=== PATIENT | female | born 1985 | race Two or more races ===

== ENCOUNTER → 2024-06-25 | Outpatient (CLI) | payer OTHER, MEDICAID, SELFPAY ==
[2024-06-26 14:49] LABS: BVAG Candida Negative (Negative); Bacterial Vaginosis Markers Positive (Negative); Candida glabrata Negative (Negative); Candida krusei PCR Negative (Negative); Trichomonas Negative (Negative)
== END | disposition home or self-care (01) ==
LOC: SLDO 13:04
PROVIDERS: Referring Provider Physician Assistant Medical; Visit Provider Physician Assistant Medical
DX: N76.0 Acute vaginitis (principal); A59.01 Trichomonal vulvovaginitis; B37.31 Acute candidiasis of vulva and vagina
CPT/HCPCS: 81514

== ENCOUNTER 2024-07-14 11:16 | Outpatient (RCR) | payer OTHER, MEDICAID, SELFPAY ==
[2024-06-23 15:14] LABS: Basophils % (Auto) 1 % (0-2.5); Eosinophils % (Auto) 1 % (0-10); Hematocrit 42.1 % (36.0-46.0); Hemoglobin 15.3 g/dL (12.0-16.0); Immature Granulocytes % (Auto) 0 % (0-0); Lymphocytes # (Auto) 1.2 Thou/mm3 (1.0-4.8); Lymphocytes % (Auto) 34 % (10-50); Mean Corpuscular HGB Conc 36.3 g/dl (31.0-37.0); Mean Corpuscular Hemoglobin 33.6 pg (25.0-35.0); Mean Corpuscular Volume 92 fL (80-100); Monocytes # (Auto) 0.2 Thou/mm3 (0.0-0.8); Monocytes % (Auto) 6 % (0-12); Neutrophils % (Auto) 58 % (37-80); Nucleated Red Blood Cell % 0 /100 WBC (0); Platelet Count 185 Thou/mm3 (140-440); RDW Standard Deviation 40.1 fL (36.4-46.3); Red Blood Count 4.56 Miln/mm3 (4.00-5.20); White Blood Count 3.4 Thou/mm3 (3.6-11.0)
[2024-06-23 15:38] LABS: Alanine Aminotransferase 26 U/L (10-49); Albumin, Serum 4.8 gm/dL (3.5-5.0); Albumin/Globulin Ratio 1.6 (1.2-2.2); Alkaline Phosphatase 137 U/L (46-116); Anion Gap 8 (7-16); Aspartate Amino Transferase 26 U/L (0-34); BUN/Creatinine Ratio 20 Ratio (12-20); Bilirubin,Total 0.8 mg/dL (0.3-1.2); Blood Urea Nitrogen 12 mg/dL (9-23); Calcium 9.9 mg/dL (8.3-10.6); Calcium (Corrected) 9.9 mg/dL (8.5-10.1); Chloride 104 mMol/L (98-107); Creatinine (Component) 0.6 mg/dL (0.6-1.3); Glucose 69 mg/dL (74-106); Osmolality,Calculated 271 (275-295); Potassium 3.3 mMol/L (3.4-5.1); Sodium 137 mMol/L (136-145); Thyroid Stimulating Hormone 1.47 uIU/mL (0.55-4.78); Total Protein 7.8 gm/dL (5.7-8.2); eGFR > 60 See Note
[2024-06-29 06:52] LABS: T3,Total* 98 ng/dL (76-181)
[2024-06-30 09:36] LABS: Basophils % (Auto) 1 % (0-2.5); Eosinophils # (Auto) 0.1 Thou/mm3 (0.0-0.5); Eosinophils % (Auto) 2 % (0-10); Hematocrit 39.7 % (36.0-46.0); Hemoglobin 14.6 g/dL (12.0-16.0); Immature Granulocytes % (Auto) 0 % (0-0); Lymphocytes % (Auto) 32 % (10-50); Mean Corpuscular HGB Conc 36.8 g/dl (31.0-37.0); Mean Corpuscular Hemoglobin 33.6 pg (25.0-35.0); Mean Corpuscular Volume 92 fL (80-100); Monocytes # (Auto) 0.2 Thou/mm3 (0.0-0.8); Monocytes % (Auto) 6 % (0-12); Neutrophils # (Auto) 1.9 Thou/mm3 (1.8-7.7); Neutrophils % (Auto) 61 % (37-80); Nucleated Red Blood Cell % 0 /100 WBC (0); Platelet Count 145 Thou/mm3 (140-440); RDW Standard Deviation 38.9 fL (36.4-46.3); Red Blood Count 4.34 Miln/mm3 (4.00-5.20); White Blood Count 3.1 Thou/mm3 (3.6-11.0)
[2024-06-30 09:59] LABS: Alanine Aminotransferase 40 U/L (10-49); Albumin, Serum 4.6 gm/dL (3.5-5.0); Albumin/Globulin Ratio 1.6 (1.2-2.2); Alkaline Phosphatase 137 U/L (46-116); Anion Gap 8 (7-16); Aspartate Amino Transferase 25 U/L (0-34); BUN/Creatinine Ratio 13 Ratio (12-20); Bilirubin,Total 0.8 mg/dL (0.3-1.2); Blood Urea Nitrogen 8 mg/dL (9-23); Calcium 9.7 mg/dL (8.3-10.6); Calcium (Corrected) 9.7 mg/dL (8.5-10.1); Carbon Dioxide 24.4 mMol/L (20.0-31.0); Chloride 105 mMol/L (98-107); Creatinine (Component) 0.6 mg/dL (0.6-1.3); Globulin 2.8 gm/dL (2.3-3.5); Glucose 119 mg/dL (74-106); Osmolality,Calculated 273 (275-295); Potassium 3.8 mMol/L (3.4-5.1); Sodium 137 mMol/L (136-145); Thyroid Stimulating Hormone 2.41 uIU/mL (0.55-4.78); Total Protein 7.4 gm/dL (5.7-8.2); eGFR > 60 See Note
[2024-07-13 11:59] LABS: Basophils % (Auto) 1 % (0-2.5); Eosinophils % (Auto) 1 % (0-10); Hematocrit 41.3 % (36.0-46.0); Hemoglobin 15.1 g/dL (12.0-16.0); Immature Granulocytes % (Auto) 0 % (0-0); Lymphocytes % (Auto) 26 % (10-50); Mean Corpuscular HGB Conc 36.6 g/dl (31.0-37.0); Mean Corpuscular Hemoglobin 33.9 pg (25.0-35.0); Mean Corpuscular Volume 93 fL (80-100); Monocytes # (Auto) 0.3 Thou/mm3 (0.0-0.8); Monocytes % (Auto) 7 % (0-12); Neutrophils # (Auto) 2.6 Thou/mm3 (1.8-7.7); Neutrophils % (Auto) 65 % (37-80); Nucleated Red Blood Cell % 0 /100 WBC (0); Platelet Count 181 Thou/mm3 (140-440); Red Blood Count 4.45 Miln/mm3 (4.00-5.20); White Blood Count 3.9 Thou/mm3 (3.6-11.0)
[2024-07-13 12:13] LABS: Alanine Aminotransferase 47 U/L (10-49); Albumin, Serum 4.8 gm/dL (3.5-5.0); Albumin/Globulin Ratio 1.7 (1.2-2.2); Alkaline Phosphatase 143 U/L (46-116); Anion Gap 10 (7-16); Aspartate Amino Transferase 28 U/L (0-34); BUN/Creatinine Ratio 16 Ratio (12-20); Bilirubin,Total 0.9 mg/dL (0.3-1.2); Blood Urea Nitrogen 11 mg/dL (9-23); Calcium 9.8 mg/dL (8.3-10.6); Calcium (Corrected) 9.8 mg/dL (8.5-10.1); Carbon Dioxide 25.2 mMol/L (20.0-31.0); Chloride 103 mMol/L (98-107); Creatinine (Component) 0.7 mg/dL (0.6-1.3); Globulin 2.9 gm/dL (2.3-3.5); Glucose 74 mg/dL (74-106); Osmolality,Calculated 274 (275-295); Potassium 3.3 mMol/L (3.4-5.1); Sodium 138 mMol/L (136-145); Thyroid Stimulating Hormone 1.68 uIU/mL (0.55-4.78); Total Protein 7.7 gm/dL (5.7-8.2); eGFR > 60 See Note
[2024-07-20 06:17] LABS: T3,Total* 104 ng/dL (76-181)
== END 2024-07-17 23:59 | disposition home or self-care (01) ==
LOC: SCTC 11:16
PROVIDERS: PCP Physician Assistant; Referring Provider Physician Assistant; Visit Provider Internal Medicine Hematology & Oncology
DX: Z51.0 Encounter for antineoplastic radiation therapy (principal); Z51.11 Encounter for antineoplastic chemotherapy; C50.811 Malignant neoplasm of overlapping sites of right female breast; Z17.421 Hormone receptor negative with human epidermal growth factor receptor 2 negative status; Z90.11 Acquired absence of right breast and nipple; R53.83 Other fatigue; D50.9 Iron deficiency anemia, unspecified; G25.81 Restless legs syndrome; M81.0 Age-related osteoporosis without current pathological fracture; L59.9 Disorder of the skin and subcutaneous tissue related to radiation, unspecified; Y84.2 Radiological procedure and radiotherapy as the cause of abnormal reaction of the patient, or of later complication, without mention of misadventure at the time of the procedure
CPT/HCPCS: 36415; 36591; 77290; 77300; 77336; 77412; 77417; 80053; 84443; 84480; 85025; 96413; 99212; A4216; J1642; J9271; G0463

== ENCOUNTER 2024-08-12 07:29 | Outpatient (RCR) | payer OTHER, MEDICAID, SELFPAY ==
[2024-07-21 14:30] LABS: Basophils % (Auto) 1 % (0-2.5); Eosinophils % (Auto) 1 % (0-10); Hematocrit 39.4 % (36.0-46.0); Hemoglobin 14.3 g/dL (12.0-16.0); Immature Granulocytes % (Auto) 0 % (0-0); Immature Granulocytes Auto 0.01 Thou/mm3 (0.00-0.00); Lymphocytes # (Auto) 1.1 Thou/mm3 (1.0-4.8); Lymphocytes % (Auto) 30 % (10-50); Mean Corpuscular HGB Conc 36.3 g/dl (31.0-37.0); Mean Corpuscular Volume 94 fL (80-100); Monocytes # (Auto) 0.2 Thou/mm3 (0.0-0.8); Monocytes % (Auto) 6 % (0-12); Neutrophils # (Auto) 2.3 Thou/mm3 (1.8-7.7); Neutrophils % (Auto) 62 % (37-80); Nucleated Red Blood Cell % 0 /100 WBC (0); Platelet Count 177 Thou/mm3 (140-440); Red Blood Count 4.21 Miln/mm3 (4.00-5.20); White Blood Count 3.8 Thou/mm3 (3.6-11.0)
[2024-07-21 14:51] LABS: Alanine Aminotransferase 41 U/L (10-49); Albumin, Serum 4.6 gm/dL (3.5-5.0); Albumin/Globulin Ratio 1.8 (1.2-2.2); Alkaline Phosphatase 131 U/L (46-116); Anion Gap 10 (7-16); Aspartate Amino Transferase 28 U/L (0-34); BUN/Creatinine Ratio 13 Ratio (12-20); Bilirubin,Total 0.8 mg/dL (0.3-1.2); Blood Urea Nitrogen 9 mg/dL (9-23); Calcium 9.3 mg/dL (8.3-10.6); Calcium (Corrected) 9.3 mg/dL (8.5-10.1); Carbon Dioxide 24.2 mMol/L (20.0-31.0); Chloride 102 mMol/L (98-107); Creatinine (Component) 0.7 mg/dL (0.6-1.3); Globulin 2.6 gm/dL (2.3-3.5); Glucose 103 mg/dL (74-106); Osmolality,Calculated 270 (275-295); Potassium 3.5 mMol/L (3.4-5.1); Sodium 136 mMol/L (136-145); Thyroid Stimulating Hormone 1.42 uIU/mL (0.55-4.78); Total Protein 7.2 gm/dL (5.7-8.2); eGFR > 60 See Note
[2024-07-27 06:25] LABS: T3,Total* 111 ng/dL (76-181)
[2024-08-04 08:33] LABS: Basophils % (Auto) 1 % (0-2.5); Eosinophils # (Auto) 0.1 Thou/mm3 (0.0-0.5); Eosinophils % (Auto) 2 % (0-10); Hematocrit 39.9 % (36.0-46.0); Hemoglobin 14.8 g/dL (12.0-16.0); Immature Granulocytes % (Auto) 0 % (0-0); Immature Granulocytes Auto 0.01 Thou/mm3 (0.00-0.00); Lymphocytes # (Auto) 1.4 Thou/mm3 (1.0-4.8); Lymphocytes % (Auto) 39 % (10-50); Mean Corpuscular HGB Conc 37.1 g/dl (31.0-37.0); Mean Corpuscular Hemoglobin 33.9 pg (25.0-35.0); Mean Corpuscular Volume 91 fL (80-100); Monocytes # (Auto) 0.3 Thou/mm3 (0.0-0.8); Monocytes % (Auto) 8 % (0-12); Neutrophils # (Auto) 1.8 Thou/mm3 (1.8-7.7); Neutrophils % (Auto) 51 % (37-80); Nucleated Red Blood Cell % 0 /100 WBC (0); Platelet Count 193 Thou/mm3 (140-440); RDW Standard Deviation 40.3 fL (36.4-46.3); Red Blood Count 4.37 Miln/mm3 (4.00-5.20); White Blood Count 3.6 Thou/mm3 (3.6-11.0)
[2024-08-04 08:57] LABS: Alanine Aminotransferase 42 U/L (10-49); Albumin, Serum 4.7 gm/dL (3.5-5.0); Albumin/Globulin Ratio 1.8 (1.2-2.2); Alkaline Phosphatase 131 U/L (46-116); Anion Gap 8 (7-16); Aspartate Amino Transferase 26 U/L (0-34); BUN/Creatinine Ratio 17 Ratio (12-20); Bilirubin,Total 0.7 mg/dL (0.3-1.2); Blood Urea Nitrogen 12 mg/dL (9-23); Calcium 9.5 mg/dL (8.3-10.6); Calcium (Corrected) 9.5 mg/dL (8.5-10.1); Carbon Dioxide 23.6 mMol/L (20.0-31.0); Chloride 106 mMol/L (98-107); Creatinine (Component) 0.7 mg/dL (0.6-1.3); Free T3 3.5 pg/mL (2.3-4.2); Free T4 (Free Thyroxine) 1.35 ng/dL (0.89-1.76); Globulin 2.6 gm/dL (2.3-3.5); Glucose 94 mg/dL (74-106); Osmolality,Calculated 275 (275-295); Potassium 3.6 mMol/L (3.4-5.1); Sodium 138 mMol/L (136-145); Thyroid Stimulating Hormone 2.06 uIU/mL (0.55-4.78); Total Protein 7.3 gm/dL (5.7-8.2); eGFR > 60 See Note
[2024-08-10 11:15] LABS: Basophils % (Auto) 1 % (0-2.5); Eosinophils % (Auto) 1 % (0-10); Hematocrit 41.3 % (36.0-46.0); Hemoglobin 15.2 g/dL (12.0-16.0); Immature Granulocytes % (Auto) 0 % (0-0); Lymphocytes # (Auto) 1.3 Thou/mm3 (1.0-4.8); Lymphocytes % (Auto) 38 % (10-50); Mean Corpuscular HGB Conc 36.8 g/dl (31.0-37.0); Mean Corpuscular Hemoglobin 34.5 pg (25.0-35.0); Mean Corpuscular Volume 94 fL (80-100); Monocytes # (Auto) 0.2 Thou/mm3 (0.0-0.8); Monocytes % (Auto) 6 % (0-12); Neutrophils # (Auto) 1.9 Thou/mm3 (1.8-7.7); Neutrophils % (Auto) 55 % (37-80); Nucleated Red Blood Cell % 0 /100 WBC (0); Platelet Count 189 Thou/mm3 (140-440); RDW Standard Deviation 41.1 fL (36.4-46.3); Red Blood Count 4.41 Miln/mm3 (4.00-5.20); White Blood Count 3.4 Thou/mm3 (3.6-11.0)
[2024-08-10 11:35] LABS: Alanine Aminotransferase 50 U/L (10-49); Albumin, Serum 4.9 gm/dL (3.5-5.0); Albumin/Globulin Ratio 1.8 (1.2-2.2); Alkaline Phosphatase 149 U/L (46-116); Anion Gap 9 (7-16); Aspartate Amino Transferase 29 U/L (0-34); BUN/Creatinine Ratio 19 Ratio (12-20); Bilirubin,Total 0.6 mg/dL (0.3-1.2); Blood Urea Nitrogen 13 mg/dL (9-23); Calcium 9.5 mg/dL (8.3-10.6); Calcium (Corrected) 9.5 mg/dL (8.5-10.1); Carbon Dioxide 27.9 mMol/L (20.0-31.0); Chloride 104 mMol/L (98-107); Creatinine (Component) 0.7 mg/dL (0.6-1.3); Free T3 3.4 pg/mL (2.3-4.2); Globulin 2.7 gm/dL (2.3-3.5); Glucose 83 mg/dL (74-106); Osmolality,Calculated 280 (275-295); Potassium 3.3 mMol/L (3.4-5.1); Sodium 141 mMol/L (136-145); Thyroid Stimulating Hormone 1.67 uIU/mL (0.55-4.78); Total Protein 7.6 gm/dL (5.7-8.2); eGFR > 60 See Note
--- NOTE | 2024-08-24 13:04 | CTCTSUMM_ITS ---
[facility] [address] [place], [place] [address] Treatment Summary Date: 07-19-24 MR#: [id number] Name: SUJATHA QUAN : 1985 Dx: C50.911 Referring Physician: Paco Navarrete MD (A) Diagnosis: [ICD10] C50.911 Malignant neoplasm of unspecified site of right female breast (B) Aim of Treatment: Curative Maintenance (C) Concomitant Chemotherapy: Sequential (D) Radiation Dates: 06/02/2024 through 07/02/2024 Treatment Prescription 9 E boost Electron boost 15 MeV E- 1,000 cGy 5 200 cGy Approved R breast 2 FIELD SEG Mixed Mode 3,990 cGy 15 266 cGy Approved (E) All schumacher were treated using customized MLC Blocks (F) Finding at Discharge: Patient seen for first follow-up in July 19, 2024. Patient was recoveri ng satisfactorily from the treatment side effects to the right breast. (G) Discharge Instructions and F/U Appt was given: The patient was also advised to continue follow-up with Dr. Marcus and primary care physician: Cc: AMAURY العراقي MD Electronically signed by: Per Randolph MD, DABR 08/24/2024 1:01 PM
== END 2024-08-17 23:59 | disposition home or self-care (01) ==
LOC: SCTC 07:29
PROVIDERS: PCP Physician Assistant; Referring Provider Physician Assistant; Visit Provider Internal Medicine Hematology & Oncology
DX: Z51.11 Encounter for antineoplastic chemotherapy (principal); C50.811 Malignant neoplasm of overlapping sites of right female breast; Z17.421 Hormone receptor negative with human epidermal growth factor receptor 2 negative status; Z90.11 Acquired absence of right breast and nipple; D50.9 Iron deficiency anemia, unspecified
CPT/HCPCS: 36415; 80053; 84439; 84443; 84480; 84481; 85025; 96413; 99212; J9271; G0463

== ENCOUNTER → 2024-09-03 | Outpatient (CLI) | payer OTHER, MEDICAID, SELFPAY ==
--- NOTE | 2024-09-03 15:53 | XR_ITS ---
EXAMINATION: Cervical spine, 5 views Technique: Cervical spine AP, AP odontoid, lateral, bilateral obliques, 5 views Exam date and time: September 03, 2024 1605 hrs. Comparison 07/03/2016 Indications: Neck pain and joint popping 2 months Findings: Straightening normal cervical lordosis No cervical fracture Intact odontoid No significant cervical disc narrowing No significant neural foraminal stenosis on the oblique views Impression: No cervical fracture No significant cervical disc narrowing
== END | disposition home or self-care (01) ==
LOC: CDIM 15:40
PROVIDERS: PCP Physician Assistant; Referring Provider Physician Assistant; Visit Provider Physician Assistant
DX: M54.2 Cervicalgia (principal)
CPT/HCPCS: 72050

== ENCOUNTER 2024-09-14 09:41 | Outpatient (RCR) | payer OTHER, MEDICAID, SELFPAY ==
[2024-08-24 09:18] LABS: Basophils % (Auto) 1 % (0-2.5); Eosinophils # (Auto) 0.1 Thou/mm3 (0.0-0.5); Eosinophils % (Auto) 1 % (0-10); Hematocrit 41.3 % (36.0-46.0); Immature Granulocytes % (Auto) 0 % (0-0); Lymphocytes # (Auto) 1.2 Thou/mm3 (1.0-4.8); Lymphocytes % (Auto) 34 % (10-50); Mean Corpuscular HGB Conc 36.3 g/dl (31.0-37.0); Mean Corpuscular Hemoglobin 33.9 pg (25.0-35.0); Mean Corpuscular Volume 93 fL (80-100); Monocytes # (Auto) 0.2 Thou/mm3 (0.0-0.8); Monocytes % (Auto) 7 % (0-12); Neutrophils % (Auto) 57 % (37-80); Nucleated Red Blood Cell % 0 /100 WBC (0); Platelet Count 162 Thou/mm3 (140-440); RDW Standard Deviation 40.1 fL (36.4-46.3); Red Blood Count 4.43 Miln/mm3 (4.00-5.20); White Blood Count 3.5 Thou/mm3 (3.6-11.0)
[2024-08-24 10:00] LABS: Alanine Aminotransferase 51 U/L (10-49); Albumin, Serum 4.8 gm/dL (3.5-5.0); Albumin/Globulin Ratio 1.8 (1.2-2.2); Alkaline Phosphatase 127 U/L (46-116); Anion Gap 9 (7-16); Aspartate Amino Transferase 28 U/L (0-34); BUN/Creatinine Ratio 14 Ratio (12-20); Bilirubin,Total 0.7 mg/dL (0.3-1.2); Blood Urea Nitrogen 10 mg/dL (9-23); Calcium 9.7 mg/dL (8.3-10.6); Calcium (Corrected) 9.7 mg/dL (8.5-10.1); Carbon Dioxide 25.2 mMol/L (20.0-31.0); Chloride 105 mMol/L (98-107); Creatinine (Component) 0.7 mg/dL (0.6-1.3); Globulin 2.7 gm/dL (2.3-3.5); Glucose 88 mg/dL (74-106); Osmolality,Calculated 275 (275-295); Potassium 3.7 mMol/L (3.4-5.1); Sodium 139 mMol/L (136-145); Total Protein 7.5 gm/dL (5.7-8.2); eGFR > 60 See Note
[2024-08-24 10:45] LABS: Thyroid Stimulating Hormone 1.48 uIU/mL (0.55-4.78)
[2024-08-24 17:27] LABS: Free T3 3.5 pg/mL (2.3-4.2)
[2024-08-31 14:53] LABS: Basophils % (Auto) 1 % (0-2.5); Eosinophils # (Auto) 0.1 Thou/mm3 (0.0-0.5); Eosinophils % (Auto) 1 % (0-10); Hematocrit 41.4 % (36.0-46.0); Hemoglobin 14.7 g/dL (12.0-16.0); Immature Granulocytes % (Auto) 0 % (0-0); Immature Granulocytes Auto 0.01 Thou/mm3 (0.00-0.00); Lymphocytes # (Auto) 1.5 Thou/mm3 (1.0-4.8); Lymphocytes % (Auto) 27 % (10-50); Mean Corpuscular HGB Conc 35.5 g/dl (31.0-37.0); Mean Corpuscular Hemoglobin 33.9 pg (25.0-35.0); Mean Corpuscular Volume 96 fL (80-100); Monocytes # (Auto) 0.3 Thou/mm3 (0.0-0.8); Monocytes % (Auto) 6 % (0-12); Neutrophils # (Auto) 3.6 Thou/mm3 (1.8-7.7); Neutrophils % (Auto) 65 % (37-80); Nucleated Red Blood Cell % 0 /100 WBC (0); Platelet Count 201 Thou/mm3 (140-440); RDW Standard Deviation 41.1 fL (36.4-46.3); Red Blood Count 4.33 Miln/mm3 (4.00-5.20); White Blood Count 5.4 Thou/mm3 (3.6-11.0)
[2024-08-31 15:35] LABS: Alanine Aminotransferase 41 U/L (10-49); Albumin, Serum 4.8 gm/dL (3.5-5.0); Albumin/Globulin Ratio 1.7 (1.2-2.2); Alkaline Phosphatase 123 U/L (46-116); Anion Gap 13 (7-16); Aspartate Amino Transferase 29 U/L (0-34); BUN/Creatinine Ratio 22 Ratio (12-20); Bilirubin,Total 0.6 mg/dL (0.3-1.2); Blood Urea Nitrogen 13 mg/dL (9-23); Calcium 9.7 mg/dL (8.3-10.6); Calcium (Corrected) 9.7 mg/dL (8.5-10.1); Carbon Dioxide 26.5 mMol/L (20.0-31.0); Chloride 103 mMol/L (98-107); Creatinine (Component) 0.6 mg/dL (0.6-1.3); Globulin 2.8 gm/dL (2.3-3.5); Glucose 69 mg/dL (74-106); Osmolality,Calculated 281 (275-295); Potassium 3.3 mMol/L (3.4-5.1); Sodium 142 mMol/L (136-145); Thyroid Stimulating Hormone 1.03 uIU/mL (0.55-4.78); Total Protein 7.6 gm/dL (5.7-8.2); eGFR > 60 See Note
[2024-09-14 12:16] LABS: Basophils % (Auto) 1 % (0-2.5); Eosinophils % (Auto) 1 % (0-10); Immature Granulocytes % (Auto) 0 % (0-0); Immature Granulocytes Auto 0.01 Thou/mm3 (0.00-0.00); Lymphocytes # (Auto) 1.4 Thou/mm3 (1.0-4.8); Lymphocytes % (Auto) 37 % (10-50); Mean Corpuscular HGB Conc 36.6 g/dl (31.0-37.0); Mean Corpuscular Hemoglobin 34.5 pg (25.0-35.0); Mean Corpuscular Volume 94 fL (80-100); Monocytes # (Auto) 0.3 Thou/mm3 (0.0-0.8); Monocytes % (Auto) 7 % (0-12); Neutrophils # (Auto) 2.2 Thou/mm3 (1.8-7.7); Neutrophils % (Auto) 55 % (37-80); Nucleated Red Blood Cell % 0 /100 WBC (0); Platelet Count 181 Thou/mm3 (140-440); RDW Standard Deviation 39.2 fL (36.4-46.3); Red Blood Count 4.35 Miln/mm3 (4.00-5.20); White Blood Count 3.9 Thou/mm3 (3.6-11.0)
[2024-09-14 12:54] LABS: Free T3 3.4 pg/mL (2.3-4.2)
[2024-09-14 13:04] LABS: Alanine Aminotransferase 38 U/L (10-49); Albumin/Globulin Ratio 1.9 (1.2-2.2); Alkaline Phosphatase 120 U/L (46-116); Anion Gap 11 (7-16); Aspartate Amino Transferase 29 U/L (0-34); BUN/Creatinine Ratio 17 Ratio (12-20); Bilirubin,Total 0.8 mg/dL (0.3-1.2); Blood Urea Nitrogen 12 mg/dL (9-23); Calcium 9.7 mg/dL (8.3-10.6); Calcium (Corrected) 9.7 mg/dL (8.5-10.1); Carbon Dioxide 27.2 mMol/L (20.0-31.0); Chloride 101 mMol/L (98-107); Creatinine (Component) 0.7 mg/dL (0.6-1.3); Globulin 2.7 gm/dL (2.3-3.5); Glucose 66 mg/dL (74-106); Osmolality,Calculated 275 (275-295); Potassium 3.2 mMol/L (3.4-5.1); Sodium 139 mMol/L (136-145); Thyroid Stimulating Hormone 1.68 uIU/mL (0.55-4.78); Total Protein 7.7 gm/dL (5.7-8.2); eGFR > 60 See Note
== END 2024-09-17 23:59 | disposition home or self-care (01) ==
LOC: SCTC 09:41
PROVIDERS: PCP Physician Assistant; Referring Provider Physician Assistant; Visit Provider Internal Medicine Hematology & Oncology
DX: Z51.11 Encounter for antineoplastic chemotherapy (principal); C50.811 Malignant neoplasm of overlapping sites of right female breast; Z17.421 Hormone receptor negative with human epidermal growth factor receptor 2 negative status; Z92.3 Personal history of irradiation; D50.9 Iron deficiency anemia, unspecified; G25.81 Restless legs syndrome
CPT/HCPCS: 36591; 80053; 84439; 84443; 84481; 85025; 96365; 96413; A4216; J1642; J7050; J9271

== ENCOUNTER 2024-10-14 08:02 | Outpatient (RCR) | payer OTHER, MEDICAID, SELFPAY ==
[2024-09-21 14:18] LABS: Basophils % (Auto) 1 % (0-2.5); Eosinophils # (Auto) 0.1 Thou/mm3 (0.0-0.5); Eosinophils % (Auto) 1 % (0-10); Hematocrit 38.3 % (36.0-46.0); Hemoglobin 14.1 g/dL (12.0-16.0); Immature Granulocytes % (Auto) 0 % (0-0); Immature Granulocytes Auto 0.01 Thou/mm3 (0.00-0.00); Lymphocytes # (Auto) 1.5 Thou/mm3 (1.0-4.8); Lymphocytes % (Auto) 27 % (10-50); Mean Corpuscular HGB Conc 36.8 g/dl (31.0-37.0); Mean Corpuscular Hemoglobin 34.2 pg (25.0-35.0); Mean Corpuscular Volume 93 fL (80-100); Monocytes # (Auto) 0.3 Thou/mm3 (0.0-0.8); Monocytes % (Auto) 4 % (0-12); Neutrophils # (Auto) 3.8 Thou/mm3 (1.8-7.7); Neutrophils % (Auto) 67 % (37-80); Nucleated Red Blood Cell % 0 /100 WBC (0); Platelet Count 168 Thou/mm3 (140-440); RDW Standard Deviation 38.7 fL (36.4-46.3); Red Blood Count 4.12 Miln/mm3 (4.00-5.20); White Blood Count 5.6 Thou/mm3 (3.6-11.0)
[2024-09-21 14:43] LABS: Alanine Aminotransferase 44 U/L (10-49); Albumin, Serum 4.6 gm/dL (3.5-5.0); Albumin/Globulin Ratio 1.6 (1.2-2.2); Alkaline Phosphatase 117 U/L (46-116); Anion Gap 8 (7-16); Aspartate Amino Transferase 26 U/L (0-34); BUN/Creatinine Ratio 19 Ratio (12-20); Bilirubin,Total 0.5 mg/dL (0.3-1.2); Blood Urea Nitrogen 13 mg/dL (9-23); Calcium 9.1 mg/dL (8.3-10.6); Calcium (Corrected) 9.1 mg/dL (8.5-10.1); Carbon Dioxide 27.1 mMol/L (20.0-31.0); Chloride 105 mMol/L (98-107); Creatinine (Component) 0.7 mg/dL (0.6-1.3); Globulin 2.8 gm/dL (2.3-3.5); Glucose 97 mg/dL (74-106); Osmolality,Calculated 279 (275-295); Potassium 3.3 mMol/L (3.4-5.1); Sodium 140 mMol/L (136-145); Total Protein 7.4 gm/dL (5.7-8.2); eGFR > 60 See Note
[2024-09-21 14:45] LABS: Thyroid Stimulating Hormone 1.54 uIU/mL (0.55-4.78)
[2024-09-21 14:47] LABS: Free T3 3.4 pg/mL (2.3-4.2)
[2024-10-07 09:38] LABS: Collection Type, Urine Clean Catch
[2024-10-07 09:43] LABS: Basophils % (Auto) 1 % (0-2.5); Eosinophils % (Auto) 1 % (0-10); Hematocrit 40.5 % (36.0-46.0); Hemoglobin 14.8 g/dL (12.0-16.0); Immature Granulocytes % (Auto) 0 % (0-0); Lymphocytes # (Auto) 1.3 Thou/mm3 (1.0-4.8); Lymphocytes % (Auto) 39 % (10-50); Mean Corpuscular HGB Conc 36.5 g/dl (31.0-37.0); Mean Corpuscular Hemoglobin 33.7 pg (25.0-35.0); Mean Corpuscular Volume 92 fL (80-100); Monocytes # (Auto) 0.2 Thou/mm3 (0.0-0.8); Monocytes % (Auto) 7 % (0-12); Neutrophils # (Auto) 1.7 Thou/mm3 (1.8-7.7); Neutrophils % (Auto) 52 % (37-80); Nucleated Red Blood Cell % 0 /100 WBC (0); Platelet Count 174 Thou/mm3 (140-440); RDW Standard Deviation 38.9 fL (36.4-46.3); Red Blood Count 4.39 Miln/mm3 (4.00-5.20); White Blood Count 3.3 Thou/mm3 (3.6-11.0)
[2024-10-07 09:55] LABS: Glucose Estimated Average 85 mg/dL (80-131); Hemoglobin A1C 4.6 % Hgb (4.8-6.0)
[2024-10-07 10:18] LABS: Alanine Aminotransferase 52 U/L (10-49); Albumin, Serum 4.4 gm/dL (3.5-5.0); Albumin/Globulin Ratio 1.6 (1.2-2.2); Alkaline Phosphatase 112 U/L (46-116); Anion Gap 12 (7-16); Aspartate Amino Transferase 32 U/L (0-34); BUN/Creatinine Ratio 18 Ratio (12-20); Bilirubin,Total 0.8 mg/dL (0.3-1.2); Blood Urea Nitrogen 11 mg/dL (9-23); Calcium 9.5 mg/dL (8.3-10.6); Calcium (Corrected) 9.5 mg/dL (8.5-10.1); Carbon Dioxide 23.2 mMol/L (20.0-31.0); Cardiac Risk Estimate 3.4 RATIO (3.7-5.6); Chloride 104 mMol/L (98-107); Cholesterol 166 mg/dL (132-200); Creatinine (Component) 0.6 mg/dL (0.6-1.3); Globulin 2.8 gm/dL (2.3-3.5); Glucose 86 mg/dL (74-106); HDL Cholesterol 49 mg/dL (40-60); LDL Cholesterol,Calculated 96 mg/dL (0-130); Osmolality,Calculated 275 (275-295); Potassium 3.7 mMol/L (3.4-5.1); Sodium 139 mMol/L (136-145); Thyroid Stimulating Hormone 1.69 uIU/mL (0.55-4.78); Total Protein 7.2 gm/dL (5.7-8.2); Triglycerides 103 mg/dL (30-150); eGFR > 60 See Note
[2024-10-07 10:20] LABS: Bilirubin,Urine Negative (Negative); Blood,Urine Negative (Negative); Clarity,Urine Clear (Clear/Hazy); Color,Urine Lt-Yellow (Lt Yel-Yel); Culture Indicated,Urine Not Indicated; Glucose, Urine Negative (Negative); Ketones,Urine Negative (Negative); Leukocyte Esterase,Urine Negative (Negative); Nitrite,Urine Negative (Negative); PH,Urine 5.5 (5.0-7.0); Protein,Urine Negative (Neg - Trace); RBC,Urine < 1 /hpf (0-3); Specific Gravity,Urine 1.017 (1.001-1.035); Squamous Epithelial Cell,Urine 2 /hpf (0-5); Urobilinogen,Urine Negative mg/dL (0.0-1.0); WBC,Urine 1 /hpf (0-5)
[2024-10-13 12:11] LABS: Basophils % (Auto) 1 % (0-2.5); Eosinophils % (Auto) 1 % (0-10); Hematocrit 40.3 % (36.0-46.0); Hemoglobin 14.5 g/dL (12.0-16.0); Immature Granulocytes % (Auto) 0 % (0-0); Immature Granulocytes Auto 0.01 Thou/mm3 (0.00-0.00); Lymphocytes # (Auto) 1.6 Thou/mm3 (1.0-4.8); Lymphocytes % (Auto) 36 % (10-50); Mean Corpuscular Hemoglobin 34.2 pg (25.0-35.0); Mean Corpuscular Volume 95 fL (80-100); Monocytes # (Auto) 0.3 Thou/mm3 (0.0-0.8); Monocytes % (Auto) 6 % (0-12); Neutrophils # (Auto) 2.4 Thou/mm3 (1.8-7.7); Neutrophils % (Auto) 56 % (37-80); Nucleated Red Blood Cell % 0 /100 WBC (0); Platelet Count 166 Thou/mm3 (140-440); RDW Standard Deviation 39.8 fL (36.4-46.3); Red Blood Count 4.24 Miln/mm3 (4.00-5.20); White Blood Count 4.4 Thou/mm3 (3.6-11.0)
[2024-10-13 12:58] LABS: Alanine Aminotransferase 47 U/L (10-49); Albumin, Serum 4.6 gm/dL (3.5-5.0); Albumin/Globulin Ratio 1.6 (1.2-2.2); Alkaline Phosphatase 113 U/L (46-116); Anion Gap 9 (7-16); Aspartate Amino Transferase 30 U/L (0-34); BUN/Creatinine Ratio 14 Ratio (12-20); Bilirubin,Total 0.5 mg/dL (0.3-1.2); Blood Urea Nitrogen 10 mg/dL (9-23); Calcium 9.5 mg/dL (8.3-10.6); Calcium (Corrected) 9.5 mg/dL (8.5-10.1); Carbon Dioxide 26.2 mMol/L (20.0-31.0); Chloride 106 mMol/L (98-107); Creatinine (Component) 0.7 mg/dL (0.6-1.3); Globulin 2.8 gm/dL (2.3-3.5); Glucose 89 mg/dL (74-106); Osmolality,Calculated 279 (275-295); Potassium 3.5 mMol/L (3.4-5.1); Sodium 141 mMol/L (136-145); Total Protein 7.4 gm/dL (5.7-8.2); eGFR > 60 See Note
== END 2024-10-15 23:59 | disposition home or self-care (01) ==
LOC: SCTC 08:02
PROVIDERS: PCP Physician Assistant; Referring Provider Physician Assistant; Visit Provider Internal Medicine Hematology & Oncology
DX: Z51.11 Encounter for antineoplastic chemotherapy (principal); C50.811 Malignant neoplasm of overlapping sites of right female breast; Z17.421 Hormone receptor negative with human epidermal growth factor receptor 2 negative status; Z90.11 Acquired absence of right breast and nipple; D50.9 Iron deficiency anemia, unspecified; G25.81 Restless legs syndrome
CPT/HCPCS: 36415; 36591; 80053; 80061; 81001; 82306; 83036; 84443; 84481; 85025; 96413; A4216; J1642; J7040; J7050; J9271

== ENCOUNTER 2024-11-03 11:00 | Outpatient (RCR) | payer OTHER, MEDICAID, SELFPAY ==
--- NOTE | 2024-10-20 15:16 | CTCFLWUP_ITS ---
Patient: SUJATHA QUAN : 1985 Page 2 of 2 FOLLOW UP NOTE DATE OF SERVICE: 10/20/2024 NAME: SUJATHA QUAN ACCOUNT: [id number] : 1985 AGE: 39 INTERVAL HISTORY: Patient is complaining of left breast pain . she also feeling palpable mass. ONCOLOGY HISTORY: DIAGNOSIS: Malignant neoplasm of unspecified site of right female breast [ICD10] C50.911 Stage IIa (T2, N0, cM0) triple negative, high-grade infiltrating ductal carcinoma of the right breast. Ki-67 40%. S/p 4 cycles of neoadjuvant pembrolizumab, Taxol and carboplatin and 4 cycles of Pertuzumab close AC chemotherapy (09/28/2022 - 01/29/2024). S/p right breast lumpectomy and sentinel lymph node biopsy on 03/15/2024. Surgical pathology specimen showed ypTN0 BRCA 1and2 negative. S/p ultrasound-guided biopsy of right breast lesion (06/30/2023) History of iron deficiency anemia currently on ferrous sulfate p.o. every other day. DATE OF DIAGNOSIS: 10/23/2022 STAGE/TNM: Stage 2- T2NOMO TREATMENT HISTORY: Care?Plan Start?Date Cycle Day Intent TNBC?Pem?17?cy?TaxCar?4?cy?AC?4?cy?Keynote?522 07/03/2023 1 21 Primary-Neoadjuvant TNBC?Pembro?17?cy?TaxCar?4?cy?AC?4?cy?Keynote?522 07/28/2023 1 21 Curative?(primary) FERAheme?4?doses 08/05/2023 1 28 Palliative xgeva?monthly 07/25/2024 1 30 Maintenance HISTORY OF PRESENT ILLNESS: Sujatha Quan is a 39-year-old pleasant female here for follow-up on her breast cancer. Patient completed chemotherapy and had a lumpectomy. There was a complete response to chemotherapy. Unfortunately patient had infection on her breast surgical site and her immunotherapy has been delayed. Patient is now on keytruda and doing well . also complted radiation . Patient also follows us for iron deficiency anemia currently on oral ferrous sulfate every other day She feels fatigued and at times have hard time sleeping secondary to her discomfort in the legs.patient is also having back ache and concerned for recurrence. She have poor appetite and have lost 8 punds of weight . December 2022: Patient started noticing pain in both breast. She also felt a lump in the right breast. Did not have any nipple discharge or nipple retraction.. 12/23/2022: Patient had bilateral breast ultrasound 01/03/2023: Bilateral screening mammograms? 01/07/2023: Right breast ultrasound 01/09/2023: Repeat ultrasound of the right breast? 02/12/2023: Ultrasound-guided percutaneous breast biopsy of the complex cysts at 9 o'clock position 06/20/2023: Right breast ultrasound 06/30/2023: Ms. Quan had ultrasound-guided percutaneous biopsy of the right 9:00 breast nodule 07/08/2023: Bilateral breast MRI with and without contrast 07/16/2023: [facility] genetic test negative for BRCA 1 and 2 mutations 07/17/2023: Right axillary lymph node fine-needle aspiration? 07/18/2023: PET/CT scan? 07/28/2023 - 01/29/2024: Ms. Quan received 4 cycles of pembrolizumab, Taxol and carboplatin and 4 cycles of in the neoadjuvant pembrolizumab Adriamycin and Cytoxan. 03/15/2024: Ms. Quna had right breast lumpectomy and sentinel lymph node biopsy OTHER MEDICAL HISTORY/CONDITIONS: ASTHMA ANEMIA ON FERROUS SULFATE 325MG PO DAILY COVID HOSPITALIZATION (03/2021) C SECTION X3 (2019) APPENDECTOMY (2008) TUBAL LIGATION W/UTERINE ABLATION (04/08/23) POLYP REMOVED FROM CERVIX (04/08/23) MAITE VIEW ?Clone Other Med Hx? FAMILY HISTORY: Father: DENIES, PATERNAL UNCLE HAD COLON CANCER, COUSIN COLON CANCER Mother: DENIES, MATERNAL AUNT THTROID AND UTERINE CANCER Sibling:?DENIES Children:?DENIES Cancer History:?RIGHT BREAST CANCER DX 06/2023 ?Clone Family Hx? 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 Tobacco?Use:?DENIES ETOH?Use:?DENIES Drug?Note:?DENIES ?Clone Social Hx? CONSTRUCTION HELPER HISTORY: Menarche?-?Age:?14 Date?LMP:?04/18/2023 Date?of?last?pap?smear:?12/17/2023 Hormone?Use:?USED??CONTROL?PILLS :?4 Live?Births:?3 Age?1st?:?23 Date?Last?Mammogram:?01/16/2023 Nipple?discharge:?N-No Gynecological?Note:?1?MISCARRIAGE ?Clone CONSTRUCTION HELPER Hx? MEDICATIONS: 1. albuterol sulfate - 90 mcg/actuation 1 Puff(s) As needed 2. alendronate - 70 mg 1 tab weekly 3. conjugated estrogens - 0.625 mg/gram 1 gm 2-3 times a week as needed 4. Dialyvite Vitamin D3 Max - 1,250 mcg (50,000 unit) 1 tab weekly 5. Fleet Glycerin (Adult) - 1 Suppository Daily 6. FLUoxetine - 20 mg 1 Capsule In the morning 7. HYDROcodone-acetaminophen - 7.5-300 mg 1 tab one tab po q daily prn 8. HYDROcodone-acetaminophen - 10-325 mg 1 tab q6 9. HYDROcodone-acetaminophen - 7.5-325 mg 1 tab Q6 10. omeprazole - 20 mg 1 Capsule Daily 11. phentermine - 37.5 mg 1 tab As directed 12. Zofran IV - 2 mg/mL 8 mg one time?Palabra Meds? Medications Last Reconciled by Jessie Longoria MD on 10/20/2024 ALLERGIES: Penicillin V; clindamycin HCl; erythromycin; erythromycin REVIEW OF SYSTEMS: A complete 14-point review of systems was performed and is negative except as noted in interval history. PHYSICAL EXAMINATION:?CloneBlock PE? VITAL SIGNS: Temperature?98.3, B/P?135/83, Oxygen?Saturation?98% Weight?153?lbs (Change?since?10/14/24:?0?lbs) PAIN: 5 - Between moderate and severe pain And oriented x 4 no masses palpable in the right breast or in the right axilla. Patient have scarring from radiation as well as infection after surgery and poor healing CHEST: Clear to auscultation. No wheezes or rales audible. CARDIAC: Rhythm regular, no murmurs or gallops present. ABDOMEN: Soft. No hepatomegaly. No splenomegaly. EXTREMITIES: No pedal edema or cyanosis. Breast examination shows hard palpable area in left breast LABORATORY DATA: I have personally reviewed and interpreted each of the patient?s relevant lab tests, abnormal findings are below: Date 10/13/24 ??WHITE?BLOOD?COUNT?(Thou/mm3) 4.4 ??RED?BLOOD?COUNT?(Miln/mm3) 4.24 ??HEMOGLOBIN?(gm/dl) 14.5 ??HEMATOCRIT?(%) 40.3 ??PLATELET?COUNT?(Thou/mm3) 166 ??NEUTROPHILS?%,?AUTO?(%) 56 ??LYMPH?%,?AUTO?(%) 36 ??NEUTROPHILS,?AUTO?(Thou/mm3) 2.4 ASSESSMENT/PLAN: #1 stage IIa (T2, N0, cM0) triple negative, high-grade infiltrating ductal carcinoma of the right breast. Ki-67 40%. BRCA 1and2 negative. S/p ultrasound-guided biopsy of right breast lesion (06/30/2023 S/p neoadjuvant pembrolizumab, Taxol and carboplatin (keynote 522) started on 07/28/2023 for 4 cycles followed by 4 cycles of pembrolizumab, Adriamycin and Cytoxan. Status post right breast lumpectomy and sentinel lymph node biopsy on 03/15/2024. Surgical pathology specimen showed complete pathological response without any residual disease. Patient completed radiation therapy and is on Keytruda tolerating well Patient is symptomatic in the left breast and examination is collaborating her symptoms Will get left breast MRI and naterra for MRD TSH T4 s #2 history of iron deficiency anemia currently on oral iron. Anemia resolved #3 restless legs Will check ferritin and iron studies ,folate and b12 as patient have restless legs and may be from iron deficiency Advised exercise and stretching . #4 early menopause Patient likely in early menopause secondary to chemotherapy Advised to take calcium and vitamin D3 daily. Patient's bone density was very low was started on Xgeva tolerating well counseled to continue taking calcium and vitamin D #4 constipation Patient have severe and chronic constipation Medication adherence reiterated Advised to take magnesium citrate and stool softeners to make sure she has a bowel movement every 24 hours CBC CMP MRI breast,naterra RETURN TO CLINIC: I will see her back in the clinic in 3 to 4 weeks with the results BILLING AND COMPLIANCE: I reviewed external records from providers outside my specialty as summarized above. I spent a total of 50 minutes on this patient?s care on the day of their visit excluding time spent related to any billed procedures. This time includes time spent with the patient as well as time spent documenting in the medical record, reviewing patients records and tests, obtaining history, placing orders, communicating with other healthcare professionals, counseling the patient, family or caregiver, and/or care coordination for the diagnoses above. Electronically Signed by: Thomas Marcus MD T: 3:13 PM CC: Charan?Rosa?, Per?Tomasa? PCP: Dayami Marshall Referring: Dayami Marshall This document was completed utilizing speech recognition software. Grammatical errors, random word insertions, pronoun errors, and incomplete sentences are an occasional consequence of this system due to software limitations, ambient noise, and hardware issues. Any formal questions or concerns about the content, text or information contained within the body of this dictation should be directly addressed to the provider for clarification.
[2024-10-28 09:33] LABS: Basophils % (Auto) 1 % (0-2.5); Eosinophils # (Auto) 0.1 Thou/mm3 (0.0-0.5); Eosinophils % (Auto) 1 % (0-10); Immature Granulocytes % (Auto) 0 % (0-0); Immature Granulocytes Auto 0.01 Thou/mm3 (0.00-0.00); Lymphocytes # (Auto) 1.6 Thou/mm3 (1.0-4.8); Lymphocytes % (Auto) 39 % (10-50); Mean Corpuscular HGB Conc 35.7 g/dl (31.0-37.0); Mean Corpuscular Hemoglobin 33.9 pg (25.0-35.0); Mean Corpuscular Volume 95 fL (80-100); Monocytes # (Auto) 0.3 Thou/mm3 (0.0-0.8); Monocytes % (Auto) 6 % (0-12); Neutrophils # (Auto) 2.1 Thou/mm3 (1.8-7.7); Neutrophils % (Auto) 53 % (37-80); Nucleated Red Blood Cell % 0 /100 WBC (0); Platelet Count 186 Thou/mm3 (140-440); RDW Standard Deviation 39.8 fL (36.4-46.3); Red Blood Count 4.42 Miln/mm3 (4.00-5.20)
[2024-10-28 09:54] LABS: Alanine Aminotransferase 47 U/L (10-49); Albumin, Serum 4.5 gm/dL (3.5-5.0); Albumin/Globulin Ratio 1.5 (1.2-2.2); Alkaline Phosphatase 113 U/L (46-116); Anion Gap 10 (7-16); Aspartate Amino Transferase 33 U/L (0-34); BUN/Creatinine Ratio 14 Ratio (12-20); Bilirubin,Total 0.8 mg/dL (0.3-1.2); Blood Urea Nitrogen 10 mg/dL (9-23); Calcium 9.5 mg/dL (8.3-10.6); Calcium (Corrected) 9.5 mg/dL (8.5-10.1); Carbon Dioxide 23.7 mMol/L (20.0-31.0); Chloride 108 mMol/L (98-107); Creatinine (Component) 0.7 mg/dL (0.6-1.3); Glucose 78 mg/dL (74-106); Osmolality,Calculated 281 (275-295); Potassium 3.6 mMol/L (3.4-5.1); Sodium 142 mMol/L (136-145); Thyroid Stimulating Hormone 1.73 uIU/mL (0.55-4.78); Total Protein 7.5 gm/dL (5.7-8.2); eGFR > 60 See Note
[2024-10-28 15:05] LABS: Ferritin 325 ng/mL (7.3-270.7); Iron 117 mcg/dL (50-170); Percent Iron Saturation 40 % (20-55); Total Iron Binding Capacity 289 mcg/dL (250-425); Unsaturated Iron Binding 172 (225-295)
[2024-10-28 15:09] LABS: Folate 21.39 ng/mL (>5.38); Vitamin B12 490 pg/mL (211-911)
[2024-11-03 12:08] LABS: Basophils % (Auto) 0 % (0-2.5); Eosinophils # (Auto) 0.1 Thou/mm3 (0.0-0.5); Eosinophils % (Auto) 1 % (0-10); Hematocrit 40.3 % (36.0-46.0); Hemoglobin 14.7 g/dL (12.0-16.0); Immature Granulocytes % (Auto) 0 % (0-0); Immature Granulocytes Auto 0.01 Thou/mm3 (0.00-0.00); Lymphocytes # (Auto) 1.6 Thou/mm3 (1.0-4.8); Lymphocytes % (Auto) 30 % (10-50); Mean Corpuscular HGB Conc 36.5 g/dl (31.0-37.0); Mean Corpuscular Volume 93 fL (80-100); Monocytes # (Auto) 0.3 Thou/mm3 (0.0-0.8); Monocytes % (Auto) 6 % (0-12); Neutrophils # (Auto) 3.4 Thou/mm3 (1.8-7.7); Neutrophils % (Auto) 63 % (37-80); Nucleated Red Blood Cell % 0 /100 WBC (0); Platelet Count 181 Thou/mm3 (140-440); RDW Standard Deviation 39.6 fL (36.4-46.3); Red Blood Count 4.32 Miln/mm3 (4.00-5.20); White Blood Count 5.4 Thou/mm3 (3.6-11.0)
[2024-11-03 12:39] LABS: Free T3 3.6 pg/mL (2.3-4.2)
[2024-11-03 12:41] LABS: Alanine Aminotransferase 44 U/L (10-49); Albumin, Serum 4.5 gm/dL (3.5-5.0); Albumin/Globulin Ratio 1.7 (1.2-2.2); Alkaline Phosphatase 104 U/L (46-116); Anion Gap 8 (7-16); Aspartate Amino Transferase 32 U/L (0-34); BUN/Creatinine Ratio 20 Ratio (12-20); Bilirubin,Total 0.6 mg/dL (0.3-1.2); Blood Urea Nitrogen 14 mg/dL (9-23); Calcium 9.3 mg/dL (8.3-10.6); Calcium (Corrected) 9.3 mg/dL (8.5-10.1); Carbon Dioxide 26.6 mMol/L (20.0-31.0); Chloride 105 mMol/L (98-107); Creatinine (Component) 0.7 mg/dL (0.6-1.3); Free T4 (Free Thyroxine) 1.32 ng/dL (0.89-1.76); Globulin 2.7 gm/dL (2.3-3.5); Glucose 97 mg/dL (74-106); Osmolality,Calculated 279 (275-295); Potassium 3.4 mMol/L (3.4-5.1); Sodium 140 mMol/L (136-145); Thyroid Stimulating Hormone 1.53 uIU/mL (0.55-4.78); Total Protein 7.2 gm/dL (5.7-8.2); eGFR > 60 See Note
[2024-11-09 07:45] LABS: C-Peptide* 6.83 ng/mL (0.80-3.85)
== END 2024-11-15 23:59 | disposition home or self-care (01) ==
LOC: SCTC 11:00
PROVIDERS: PCP Physician Assistant; Referring Provider Physician Assistant; Visit Provider Internal Medicine Hematology & Oncology
DX: C50.811 Malignant neoplasm of overlapping sites of right female breast (principal); Z17.421 Hormone receptor negative with human epidermal growth factor receptor 2 negative status; Z92.21 Personal history of antineoplastic chemotherapy; Z90.11 Acquired absence of right breast and nipple; Z92.3 Personal history of irradiation; Z86.2 Personal history of diseases of the blood and blood-forming organs and certain disorders involving the immune mechanism; G25.81 Restless legs syndrome; K59.00 Constipation, unspecified; N64.4 Mastodynia
CPT/HCPCS: 36415; 80053; 82607; 82728; 82746; 83540; 83550; 84439; 84443; 84481; 84681; 85025; 99212; G0463

== ENCOUNTER → 2024-11-03 | Outpatient (CLI) | payer OTHER, MEDICAID, SELFPAY ==
[2024-11-04 08:59] LABS: BVAG Candida Negative (Negative); Bacterial Vaginosis Markers Positive (Negative); Candida glabrata Negative (Negative); Candida krusei PCR Negative (Negative); Trichomonas Negative (Negative)
== END | disposition home or self-care (01) ==
LOC: SLDO 15:30
PROVIDERS: Referring Provider Specialist; Visit Provider Specialist
DX: A59.01 Trichomonal vulvovaginitis (principal); B37.89 Other sites of candidiasis; N76.0 Acute vaginitis
CPT/HCPCS: 81514

== ENCOUNTER → 2024-12-10 | Outpatient (CLI) | payer OTHER, MEDICAID, SELFPAY ==
[2024-12-11 08:54] LABS: BVAG Candida Negative (Negative); Bacterial Vaginosis Markers Negative (Negative); Candida glabrata Negative (Negative); Candida krusei PCR Negative (Negative); Trichomonas Negative (Negative)
== END | disposition home or self-care (01) ==
LOC: SLDO 15:10
PROVIDERS: Referring Provider Specialist; Visit Provider Specialist
DX: A59.01 Trichomonal vulvovaginitis (principal); B37.89 Other sites of candidiasis; N76.0 Acute vaginitis
CPT/HCPCS: 81514

== ENCOUNTER 2024-12-29 14:13 | Outpatient (RCR) | payer OTHER, MEDICAID, SELFPAY ==
[2024-12-24 11:09] LABS: Basophils % (Auto) 1 % (0-2.5); Eosinophils # (Auto) 0.1 Thou/mm3 (0.0-0.5); Eosinophils % (Auto) 1 % (0-10); Hematocrit 39.8 % (36.0-46.0); Hemoglobin 14.8 g/dL (12.0-16.0); Immature Granulocytes % (Auto) 0 % (0-0); Immature Granulocytes Auto 0.01 Thou/mm3 (0.00-0.00); Lymphocytes # (Auto) 1.5 Thou/mm3 (1.0-4.8); Lymphocytes % (Auto) 33 % (10-50); Mean Corpuscular HGB Conc 37.2 g/dl (31.0-37.0); Mean Corpuscular Hemoglobin 34.4 pg (25.0-35.0); Mean Corpuscular Volume 93 fL (80-100); Monocytes # (Auto) 0.2 Thou/mm3 (0.0-0.8); Monocytes % (Auto) 5 % (0-12); Neutrophils # (Auto) 2.9 Thou/mm3 (1.8-7.7); Neutrophils % (Auto) 61 % (37-80); Nucleated Red Blood Cell % 0 /100 WBC (0); Platelet Count 183 Thou/mm3 (140-440); RDW Standard Deviation 39.4 fL (36.4-46.3); White Blood Count 4.7 Thou/mm3 (3.6-11.0)
[2024-12-24 11:21] LABS: Glucose Estimated Average 88 mg/dL (80-131); Hemoglobin A1C 4.7 % Hgb (4.8-6.0)
[2024-12-24 11:39] LABS: Alanine Aminotransferase 41 U/L (10-49); Albumin, Serum 4.4 gm/dL (3.5-5.0); Albumin/Globulin Ratio 1.7 (1.2-2.2); Alkaline Phosphatase 121 U/L (46-116); Anion Gap 8 (7-16); Aspartate Amino Transferase 29 U/L (0-34); BUN/Creatinine Ratio 22 Ratio (12-20); Beta HCG,Quantitative < 1 mIU/mL (<5.0); Bilirubin,Total 0.6 mg/dL (0.3-1.2); Blood Urea Nitrogen 13 mg/dL (9-23); Calcium 8.7 mg/dL (8.3-10.6); Calcium (Corrected) 8.7 mg/dL (8.5-10.1); Carbon Dioxide 26.5 mMol/L (20.0-31.0); Chloride 107 mMol/L (98-107); Creatinine (Component) 0.6 mg/dL (0.6-1.3); Free T4 (Free Thyroxine) 1.12 ng/dL (0.89-1.76); Globulin 2.6 gm/dL (2.3-3.5); Glucose 95 mg/dL (74-106); Osmolality,Calculated 281 (275-295); Potassium 3.7 mMol/L (3.4-5.1); Sodium 141 mMol/L (136-145); Thyroid Stimulating Hormone 1.07 uIU/mL (0.55-4.78); eGFR > 60 See Note
[2025-01-03 07:27] LABS: Progesterone,LC/MS* <0.1 ng/mL
[2025-01-03 07:29] LABS: Albumin 4.3 g/dL (3.6-5.1); DHEA Sulfate* 224 mcg/dL (23-266); Estrogen, Total, Serum* 69 pg/mL; Prolactin* 2.3 ng/mL; SHBG 21 nmol/L (17-124); Testosterone, Bioavailable 5.1 ng/dL (0.5-8.5); Testosterone, Free 2.6 pg/mL (0.2-5.0); Testosterone,Total 16 ng/dL (2-45)
--- NOTE | 2025-01-06 14:17 | CTCFLWUP_ITS ---
Patient: SUJATHA QUAN : 1985 Page 9 of 11 FOLLOW UP NOTE DATE OF SERVICE: 12/29/2024 NAME: SUJATHA QUAN ACCOUNT: [id number] : 1985 AGE: 39 INTERVAL HISTORY: Patient is complaining of right breast pain . she also feeling palpable mass. Patient is very stressed out and is requesting for bilateral mastectomy. Patient states she is unable to sleep at night and is unable to concentrate on her job. Patient is here to discuss the results of recent MRI of her breast. ONCOLOGY HISTORY:?[facility] Hx? DIAGNOSIS: Malignant neoplasm of unspecified site of right female breast [ICD10] C50.911 Stage IIa (T2, N0, cM0) triple negative, high-grade infiltrating ductal carcinoma of the right breast. Ki-67 40%. S/p 4 cycles of neoadjuvant pembrolizumab, Taxol and carboplatin and 4 cycles of Pertuzumab close AC chemotherapy (09/28/2022 - 01/29/2024). S/p right breast lumpectomy and sentinel lymph node biopsy on 03/15/2024. Surgical pathology specimen showed ypTN0 BRCA 1and2 negative. S/p ultrasound-guided biopsy of right breast lesion (06/30/2023) History of iron deficiency anemia currently on ferrous sulfate p.o. every other day. DATE OF DIAGNOSIS: 10/23/2022 STAGE/TNM: Stage 2- T2NOMO TREATMENT HISTORY: Care?Plan Start?Date Cycle Day Intent TNBC?Pem?17?cy?TaxCar?4?cy?AC?4?cy?Keynote?522 07/03/2023 1 21 Primary-Neoadjuvant TNBC?Pembro?17?cy?TaxCar?4?cy?AC?4?cy?Keynote?522 07/28/2023 1 21 Curative?(primary) FERAheme?4?doses 08/05/2023 1 28 Palliative xgeva?monthly 07/25/2024 1 30 Maintenance HISTORY OF PRESENT ILLNESS: Sujatha Quan is a 39-year-old pleasant female here for follow-up on her breast cancer. Patient completed chemotherapy and had a lumpectomy. There was a complete response to chemotherapy. Unfortunately patient had infection on her breast surgical site and her immunotherapy has been delayed. Patient is now on keytruda and doing well . also complted radiation . Patient also follows us for iron deficiency anemia currently on oral ferrous sulfate every other day She feels fatigued and at times have hard time sleeping secondary to her discomfort in the legs.patient is also having back ache and concerned for recurrence. She have poor appetite and have lost 8 punds of weight . December 2022: Patient started noticing pain in both breast. She also felt a lump in the right breast. Did not have any nipple discharge or nipple retraction.. 12/23/2022: Patient had bilateral breast ultrasound 01/03/2023: Bilateral screening mammograms? 01/07/2023: Right breast ultrasound 01/09/2023: Repeat ultrasound of the right breast? 02/12/2023: Ultrasound-guided percutaneous breast biopsy of the complex cysts at 9 o'clock position 06/20/2023: Right breast ultrasound 06/30/2023: Ms. Quan had ultrasound-guided percutaneous biopsy of the right 9:00 breast nodule 07/08/2023: Bilateral breast MRI with and without contrast 07/16/2023: [facility] genetic test negative for BRCA 1 and 2 mutations 07/17/2023: Right axillary lymph node fine-needle aspiration? 07/18/2023: PET/CT scan? 07/28/2023 - 01/29/2024: Ms. Quan received 4 cycles of pembrolizumab, Taxol and carboplatin and 4 cycles of in the neoadjuvant pembrolizumab Adriamycin and Cytoxan. 03/15/2024: Ms. Quan had right breast lumpectomy and sentinel lymph node biopsy 12/17/2024 MRI breastMPFIESSION: INCOMPLETE: NEED ADDITIONAL IMAGING EVALUATION he 5.5 cm area in the right breast likely represents surgery er radiation erapy. as well as enhancment from these changes from treatment of reviosly seen right breast cancer as well as physiologic (?ditterent time n the patiens cycle as it is also seen In the left breast to a lesser agree, and is much more pronounced than on the prior MRI). However, this ronounoed enhancement limits this MRI, but is all thought probably benign. rrelate clinically. A diagnostic right mammogram and ultrasound IS eeommended w[place] further evaluation given limitations above. 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 Tobacco?Use:?DENIES ETOH?Use:?DENIES Drug?Note:?DENIES APPLICATIONS ADMINISTRATOR HISTORY: Menarche?-?Age:?14 Date?LMP:?04/18/2023 Date?of?last?pap?smear:?12/17/2023 Hormone?Use:?USED??CONTROL?PILLS :?4 Live?Births:?3 Age?1st?:?23 Date?Last?Mammogram:?01/16/2023 Nipple?discharge:?N-No Gynecological?Note:?1?MISCARRIAGE MEDICATIONS: 1. albuterol sulfate - 90 mcg/actuation 1 Puff(s) As needed 2. alendronate - 70 mg 1 tab weekly 3. Bactrim DS - 800-160 mg 1 tab TWICE A DAY 4. conjugated estrogens - 0.625 mg/gram 1 gm 2-3 times a week as needed 5. Dialyvite Vitamin D3 Max - 1,250 mcg (50,000 unit) 1 tab weekly 6. Fleet Glycerin (Adult) - 1 Suppository Daily 7. fluconazole - 150 mg 1 tab Daily 8. FLUoxetine - 20 mg 1 Capsule In the morning 9. HYDROcodone-acetaminophen - 7.5-300 mg 1 tab one tab po q daily prn 10. HYDROcodone-acetaminophen - 7.5-325 mg 1 tab Q6 11. HYDROcodone-acetaminophen - 10-325 mg 1 tab q6 12. levoFLOXacin - 750 mg 1 tab Daily 13. omeprazole - 20 mg 1 Capsule Daily 14. phentermine - 37.5 mg 1 tab As directed 15. Zofran IV - 2 mg/mL 8 mg one time?Palabra Meds? Medications Last Reconciled by Angelica Marie MA on 12/29/2024 ALLERGIES: Penicillin V; clindamycin HCl; erythromycin; erythromycin REVIEW OF SYSTEMS: A complete 14-point review of systems was performed and is negative except as noted in interval history. PHYSICAL EXAMINATION:?CloneBlock PE? VITAL SIGNS: Temperature?98.5, B/P?122/87, Oxygen?Saturation?99% Weight?154?lbs (Change?since?12/24/24:?-1.2?lbs) PAIN: 2 - Mild pain ECOG Performance Status: 1 - Symptomatic; ambulatory; restricted in strenuous activity And oriented x 4 Patient have scarring from radiation as well as infection after surgery and poor healing CHEST: Clear to auscultation. No wheezes or rales audible. CARDIAC: Rhythm regular, no murmurs or gallops present. ABDOMEN: Soft. No hepatomegaly. No splenomegaly. EXTREMITIES: No pedal edema or cyanosis. Breast examination shows hard palpable area in the right breast LABORATORY DATA: I have personally reviewed and interpreted each of the patient?s relevant lab tests, abnormal findings are below: Date 11/03/24 12/24/24 ??WHITE?BLOOD?COUNT?(Thou/mm3) 5.4 4.7 ??RED?BLOOD?COUNT?(Miln/mm3) 4.32 4.30 ??HEMOGLOBIN?(gm/dl) 14.7 14.8 ??HEMATOCRIT?(%) 40.3 39.8 ??PLATELET?COUNT?(Thou/mm3) 181 183 ??NEUTROPHILS?%,?AUTO?(%) 63 61 ??LYMPH?%,?AUTO?(%) 30 33 ??NEUTROPHILS,?AUTO?(Thou/mm3) 3.4 2.9 ??GLUCOSE,RANDOM?(mg/dL) 97 95 ??BLOOD?UREA?NITROGEN?(mg/dL) 14 13 ??CREATININE?(mg/dL) 0.70 0.60 ??SODIUM?(mmol/L) 140 141 ??POTASSIUM?(mmol/L) 3.4 3.7 ??CHLORIDE?(mmol/L) 105 107 ??CrCl?(CandG)?(ml/min) 119.45 142.67 ??AST/SGOT?(Unit/L) 32 29 ??ALT/SGPT?(Unit/L) 44 41 ??ALKALINE?PHOSPHATASE?(Unit/L) 104 121?H ??BILIRUBIN,?TOTAL?(mg/dL) 0.6 0.6 ??PROTEIN?TOTAL?(gm/dl) 7.2 7.0 ??ALBUMIN,?SERUM?(gm/dl) 4.5 4.4 ??GLOBULIN?(gm/dl) 2.7 2.6 ??ALBUMIN/GLOBULIN?RATIO 1.7 1.7 ??CALCIUM,?SERUM?(mg/dL) 9.3 8.7 ??CALCIUM?SERUM?(CORRECTED)?(mg/dL) 9.3 8.7 ASSESSMENT/PLAN:?Kathy Marcus Assessment/Plan? #1 stage IIa (T2, N0, cM0) triple negative, high-grade infiltrating ductal carcinoma of the right breast. Ki-67 40%. BRCA 1and2 negative. S/p ultrasound-guided biopsy of right breast lesion (06/30/2023 S/p neoadjuvant pembrolizumab, Taxol and carboplatin (keynote 522) started on 07/28/2023 for 4 cycles followed by 4 cycles of pembrolizumab, Adriamycin and Cytoxan. Status post right breast lumpectomy and sentinel lymph node biopsy on 03/15/2024. Surgical pathology specimen showed complete pathological response without any residual disease. Patient completed radiation therapy and is on Keytruda tolerating well Patient is symptomatic in right breast and MRI is concerning for some distortion and changes Ashley is negative for MRD Reassured Ms. Quan that I will send her immediately to the surgeon. Spoke to Dr. Noble and he will see Ms. Quan next week I think given patient's anxiety regarding recurrence of cancer and young age, she should be considered for prophylactic mastectomy TSH T4 s #2 history of iron deficiency anemia currently on oral iron. Anemia resolved #3 restless legs Will check ferritin and iron studies ,folate and b12 as patient have restless legs and may be from iron deficiency Advised exercise and stretching . #4 early menopause Patient likely in early menopause secondary to chemotherapy Advised to take calcium and vitamin D3 daily. Patient's bone density was very low was started on Xgeva tolerating well counseled to continue taking calcium and vitamin D #4 constipation Patient have severe and chronic constipation Medication adherence reiterated Advised to take magnesium citrate and stool softeners to make sure she has a bowel movement every 24 hours CBC CMP MRI breast,naterra #5 bronchitis Patient says she has underlying asthma Ordered antibiotics for bronchitis and advised to follow-up with primary care to manage her underlying asthma At this time patient do not have any severe wheezing as patient has been taking prednisone at home ORDERS: Order # Description [id number] CBC + Comprehensive Metabolic Panel [id number] Lab Appointment [id number] CBC + Comprehensive Metabolic Panel [id number] Lab Appointment [id number] CBC + Comprehensive Metabolic Panel [id number] Lab Appointment [id number] CBC + Comprehensive Metabolic Panel [id number] Lab Appointment [id number] CBC + Comprehensive Metabolic Panel [id number] Lab Appointment [id number] CBC + Comprehensive Metabolic Panel [id number] Lab Appointment RETURN TO CLINIC: 2 to 3 weeks after follow-up with Dr. Santoyo BILLING AND COMPLIANCE: I reviewed external records from providers outside my specialty as summarized above. I spent a total of 50 minutes on this patient?s care on the day of their visit excluding time spent related to any billed procedures. This time includes time spent with the patient as well as time spent documenting in the medical record, reviewing patients records and tests, obtaining history, placing orders, communicating with other healthcare professionals, counseling the patient, family or caregiver, and/or care coordination for the diagnoses above. Electronically Signed by: Thomas Marcus MD T: 11:52 PM CC: Charan?Rosa?, Per?Tomasa? PCP: Dayami Marshall Referring: Dayami Marshall This document was completed utilizing speech recognition software. Grammatical errors, random word insertions, pronoun errors, and incomplete sentences are an occasional consequence of this system due to software limitations, ambient noise, and hardware issues. Any formal questions or concerns about the content, text or information contained within the body of this dictation should be directly addressed to the provider for clarification.
== END 2025-01-15 23:59 | disposition home or self-care (01) ==
LOC: SCTC 14:13
PROVIDERS: PCP Physician Assistant; Referring Provider Physician Assistant; Visit Provider Internal Medicine Hematology & Oncology
DX: C50.811 Malignant neoplasm of overlapping sites of right female breast (principal); Z17.421 Hormone receptor negative with human epidermal growth factor receptor 2 negative status; Z90.11 Acquired absence of right breast and nipple; Z86.2 Personal history of diseases of the blood and blood-forming organs and certain disorders involving the immune mechanism; K59.00 Constipation, unspecified; G25.81 Restless legs syndrome; J45.909 Unspecified asthma, uncomplicated
CPT/HCPCS: 36591; 80053; 82040; 82627; 82672; 83001; 83002; 83036; 84144; 84146; 84270; 84403; 84439; 84443; 84702; 85025; 99212; A4216; J1642; G0463

== ENCOUNTER → 2025-01-25 | Outpatient (CLI) | payer OTHER, MEDICAID, SELFPAY ==
--- NOTE | 2025-01-25 17:30 | ECHO_ITS ---
Transthoracic Echo Report Ht (in): 58 Wt (lb): 154 Exam Location: Echo Lab Status: Preadmit Senior Payroll Administrator: Aura Kaye Indications: Procedure Performed: BP: / HR: MEASUREMENTS (Male / Female) Normal Values 2D ECHO LV Diastolic Diameter PLAX 3.8 cm 4.2 - 5.9 / 3.9 - 5.3 cm LV Systolic Diameter PLAX 2.5 cm IVS Diastolic Thickness 0.6 cm 0.6 - 1.0 / 0.6 - 0.9 cm LVPW Diastolic Thickness 0.6 cm 0.6 - 1.0 / 0.6 - 0.9 cm LV Relative Wall Thickness 0.3 LVOT Diameter 1.2 cm LA Systolic Diameter LX 3.3 cm 3.0 - 4.0 / 2.7 - 3.8 cm LA Volume Index 19.9 cm?/m? 16 - 28 cm?/m? M-MODE Aortic Root Diameter MM 2.2 cm LA Systolic Diameter MM 2.6 cm LA Ao Ratio MM 1.2 AV Cusp Separation MM 1.5 cm DOPPLER AV Peak Velocity 171.0 cm/s AV Peak Gradient 11.7 mmHg AV Mean Gradient 5.0 mmHg AV Velocity Time Integral 35.0 cm LVOT Peak Velocity 114.0 cm/s LVOT Peak Gradient 5.2 mmHg LVOT Velocity Time Integral 27.0 cm AV Area Cont Eq vti 0.9 cm? AV Area Cont Eq pk 0.8 cm? MV Area PHT 5.4 cm? MR Peak Velocity 298.0 cm/s MR Peak Gradient 35.5 mmHg Mitral E Point Velocity 85.9 cm/s Mitral A Point Velocity 62.6 cm/s Mitral E to A Ratio 1.4 LV E' Lateral Velocity 13.1 cm/s Mitral E to LV E' Lateral Ratio 6.6 LV E' Septal Velocity 10.1 cm/s Mitral E to LV E' Septal Ratio 8.5 TR Peak Velocity 214.0 cm/s TR Peak Gradient 18.3 mmHg PV Peak Velocity 111.0 cm/s PV Peak Gradient 4.9 mmHg FINDINGS Left Ventricle Normal left ventricular size, wall thickness, systolic function with no obvious regional wall motion abnormalities. Normal left ventricular diastolic function. The ejection fraction is visually estimated at 65%. Right Ventricle The right ventricle is normal in size and systolic function. Left Atrium The left atrium is normal by two-dimensional, color flow and Doppler imaging with no structural abnormalities, no thrombus formation present. Right Atrium The right atrium is normal by two-dimensional imaging, color flow and Doppler imaging with no structural abnormalities, no thrombus formation present. Atrial Septum The interatrial septum appears normal with no evidence of a shunt. Aorta The aorta is normal by two-dimensional, color flow and Doppler interrogation. Mitral Valve The mitral valve is normal by two-dimensional, color flow and Doppler interrogation. Trace mitral regurgitation. Aortic Valve The aortic valve is trileaflet and normal by two-dimensional, color flow and Doppler interrogation. There is no significant aortic valve regurgitation. Tricuspid Valve The tricuspid valve is normal by two-dimensional, color flow and Doppler interrogation. There is trace tricuspid valve regurgitation. Pulmonic Valve The pulmonic valve is not well visualized. There is no significant pulmonic valve regurgitation. Vessels The pulmonary artery appears normal. The inferior vena cava pulmonary and hepatic veins appear normal. Pericardium The pericardium is normal by two-dimensional imaging. There is no significant pericardial effusion. CONCLUSIONS Indication: Malignant neoplasm of unspecified site or the right female breast Normal LV size and wall thickness. Normal LV diastolic function. Estimated LVEF at 60-65%. The RV is normal in size and systolic function. Trace MR and TR. Hermes Taylor (Electronically Signed) Final Date: 25 January 2025 19:21
== END | disposition home or self-care (01) ==
LOC: SDIM 01-27 08:08
PROVIDERS: PCP Family Medicine; Referring Provider Internal Medicine Hematology & Oncology; Visit Provider Internal Medicine Hematology & Oncology
DX: C50.911 Malignant neoplasm of unspecified site of right female breast (principal); I08.1 Rheumatic disorders of both mitral and tricuspid valves
CPT/HCPCS: 93306

== ENCOUNTER 2025-04-08 08:57 | Outpatient (RCR) | payer OTHER, MEDICAID, SELFPAY ==
[2025-04-08 11:10] LABS: Basophils # (Auto) 0.0 Thou/mm3 (0.0-0.2); Basophils % (Auto) 1 % (0-2.5); Eosinophils # (Auto) 0.1 Thou/mm3 (0.0-0.5); Eosinophils % (Auto) 1 % (0-10); Hematocrit 40.6 % (36.0-46.0); Hemoglobin 14.3 g/dL (12.0-16.0); Immature Granulocytes Auto 0.01 Thou/mm3 (0.00-0.00); Lymphocytes # (Auto) 2.1 Thou/mm3 (1.0-4.8); Lymphocytes % (Auto) 34 % (10-50); Mean Corpuscular HGB Conc 35.2 g/dl (31.0-37.0); Mean Corpuscular Hemoglobin 34.2 pg (25.0-35.0); Mean Corpuscular Volume 97 fL (80-100); Monocytes # (Auto) 0.4 Thou/mm3 (0.0-0.8); Monocytes % (Auto) 6 % (0-12); Neutrophils # (Auto) 3.5 Thou/mm3 (1.8-7.7); Neutrophils % (Auto) 58 % (37-80); Nucleated Red Blood Cell # 0.00 Thou/mm3 (0.00-0.00); Nucleated Red Blood Cell % 0 /100 WBC (0); Platelet Count 199 Thou/mm3 (140-440); RDW Standard Deviation 41.7 fL (36.4-46.3); Red Blood Count 4.18 Miln/mm3 (4.00-5.20); White Blood Count 6.0 Thou/mm3 (3.6-11.0)
[2025-04-08 11:39] LABS: Alanine Aminotransferase 30 U/L (10-49); Albumin, Serum 4.3 gm/dL (3.5-5.0); Albumin/Globulin Ratio 1.6 (1.2-2.2); Alkaline Phosphatase 105 U/L (46-116); Anion Gap 12 (7-16); Aspartate Amino Transferase 21 U/L (0-34); BUN/Creatinine Ratio 14 Ratio (12-20); Bilirubin,Total 0.4 mg/dL (0.3-1.2); Blood Urea Nitrogen 11 mg/dL (9-23); Calcium 9.3 mg/dL (8.3-10.6); Calcium (Corrected) 9.3 mg/dL (8.5-10.1); Carbon Dioxide 23.8 mMol/L (20.0-31.0); Chloride 107 mMol/L (98-107); Creatinine (Component) 0.8 mg/dL (0.6-1.3); Free T4 (Free Thyroxine) 1.09 ng/dL (0.89-1.76); Globulin 2.7 gm/dL (2.3-3.5); Glucose 85 mg/dL (74-106); Osmolality,Calculated 283 (275-295); Potassium 3.7 mMol/L (3.4-5.1); Sodium 143 mMol/L (136-145); Thyroid Stimulating Hormone 1.68 uIU/mL (0.55-4.78); Total Protein 7.0 gm/dL (5.7-8.2); eGFR > 60 See Note
[2025-04-08 11:45] LABS: Ferritin 243 ng/mL (7.3-270.7); Iron 104 mcg/dL (50-170); Percent Iron Saturation 39 % (20-55); Total Iron Binding Capacity 264 mcg/dL (250-425); Unsaturated Iron Binding 160 (225-295)
[2025-04-08 11:47] LABS: Folate 14.60 ng/mL (>5.38); Vitamin B12 507 pg/mL (211-911); Vitamin D 25 Hydroxy Total 15.1 ng/mL (7.3-40.2)
[2025-04-12 06:29] LABS: T3,Total* 93 ng/dL (76-181)
== END 2025-04-17 23:59 | disposition home or self-care (01) ==
LOC: SCTC 08:57
PROVIDERS: PCP Physician Assistant; Referring Provider Physician Assistant; Visit Provider Internal Medicine Hematology & Oncology
DX: C50.911 Malignant neoplasm of unspecified site of right female breast (principal); C50.811 Malignant neoplasm of overlapping sites of right female breast; Z17.421 Hormone receptor negative with human epidermal growth factor receptor 2 negative status; Z90.11 Acquired absence of right breast and nipple; Z92.21 Personal history of antineoplastic chemotherapy; Z92.3 Personal history of irradiation; Z86.2 Personal history of diseases of the blood and blood-forming organs and certain disorders involving the immune mechanism; G25.81 Restless legs syndrome; K59.00 Constipation, unspecified
CPT/HCPCS: 36591; 80053; 82306; 82607; 82728; 82746; 83540; 83550; 84439; 84443; 84480; 85025; A4216; J1642

== ENCOUNTER 2025-06-03 09:32 | Outpatient (RCR) | payer OTHER, MEDICAID, SELFPAY ==
[2025-06-03 10:19] LABS: Misc Send Out* See Sep Rpt
[2025-06-03 10:27] LABS: Basophils # (Auto) 0.0 Thou/mm3 (0.0-0.2); Basophils % (Auto) 1 % (0-2.5); Eosinophils # (Auto) 0.0 Thou/mm3 (0.0-0.5); Eosinophils % (Auto) 1 % (0-10); Hematocrit 40.3 % (36.0-46.0); Hemoglobin 15.0 g/dL (12.0-16.0); Immature Granulocytes Auto 0.01 Thou/mm3 (0.00-0.00); Lymphocytes # (Auto) 2.7 Thou/mm3 (1.0-4.8); Lymphocytes % (Auto) 46 % (10-50); Mean Corpuscular HGB Conc 37.2 g/dl (31.0-37.0); Mean Corpuscular Hemoglobin 34.4 pg (25.0-35.0); Mean Corpuscular Volume 92 fL (80-100); Monocytes # (Auto) 0.3 Thou/mm3 (0.0-0.8); Monocytes % (Auto) 5 % (0-12); Neutrophils # (Auto) 2.7 Thou/mm3 (1.8-7.7); Neutrophils % (Auto) 47 % (37-80); Nucleated Red Blood Cell # 0.00 Thou/mm3 (0.00-0.00); Nucleated Red Blood Cell % 0 /100 WBC (0); Platelet Count 202 Thou/mm3 (140-440); RDW Standard Deviation 38.7 fL (36.4-46.3); Red Blood Count 4.36 Miln/mm3 (4.00-5.20); White Blood Count 5.8 Thou/mm3 (3.6-11.0)
[2025-06-03 10:35] LABS: INR 1.0 (0.9-1.3); Prothrombin Time 11.0 Seconds (9.0-12.2)
[2025-06-03 10:46] LABS: Alanine Aminotransferase 28 U/L (10-49); Albumin, Serum 4.4 gm/dL (3.5-5.0); Albumin/Globulin Ratio 1.8 (1.2-2.2); Alkaline Phosphatase 91 U/L (46-116); Anion Gap 11 (7-16); Aspartate Amino Transferase 25 U/L (0-34); BUN/Creatinine Ratio 18 Ratio (12-20); Bilirubin,Total 0.7 mg/dL (0.3-1.2); Blood Urea Nitrogen 11 mg/dL (9-23); Calcium 9.1 mg/dL (8.3-10.6); Calcium (Corrected) 9.1 mg/dL (8.5-10.1); Carbon Dioxide 25.3 mMol/L (20.0-31.0); Chloride 105 mMol/L (98-107); Creatinine (Component) 0.6 mg/dL (0.6-1.3); Globulin 2.5 gm/dL (2.3-3.5); Glucose 93 mg/dL (74-106); Osmolality,Calculated 280 (275-295); Potassium 3.8 mMol/L (3.4-5.1); Sodium 141 mMol/L (136-145); Total Iron Binding Capacity 266 mcg/dL (250-425); Total Protein 6.9 gm/dL (5.7-8.2); eGFR > 60 See Note
[2025-06-03 10:49] LABS: Ferritin 244 ng/mL (7.3-270.7); Iron 103 mcg/dL (50-170); Percent Iron Saturation 38 % (20-55); Total Iron Binding Capacity 271 mcg/dL (250-425); Unsaturated Iron Binding 168 (225-295)
[2025-06-03 11:18] LABS: AFP Non-Pregnant 3.90 ng/mL (<8.10)
[2025-06-03 11:31] LABS: Hepatitis A Antibody IgM Non Reactive (Non React); Hepatitis B Core Antibody IgM Non Reactive (Non React); Hepatitis B Surface Antigen Non Reactive (Non React); Hepatitis C Antibody Non Reactive (Non React)
[2025-06-10 06:42] LABS: ANA Screen, IFA POSITIVE (NEGATIVE); ANA Titer 1:640 titer; Alpha-1-Antitrypsin* 120 mg/dL (83-199); Mitochondrial Ab NEGATIVE (NEGATIVE)
[2025-06-10 06:43] LABS: Ceruloplasmin* 22 mg/dL (14-48); Copper* 107 mcg/dL (70-175)
== END 2025-06-17 23:59 | disposition home or self-care (01) ==
LOC: SCTC 09:32
PROVIDERS: PCP Physician Assistant; Referring Provider Physician Assistant; Visit Provider Internal Medicine Hematology & Oncology
DX: C50.811 Malignant neoplasm of overlapping sites of right female breast (principal); Z17.421 Hormone receptor negative with human epidermal growth factor receptor 2 negative status; Z90.11 Acquired absence of right breast and nipple; Z92.3 Personal history of irradiation; Z86.2 Personal history of diseases of the blood and blood-forming organs and certain disorders involving the immune mechanism; J45.909 Unspecified asthma, uncomplicated
CPT/HCPCS: 80053; 80074; 82103; 82105; 82390; 82525; 82728; 83540; 83550; 85025; 85610; 86015; 86038; 86039; 86255; 99212; A4216; J1642; G0463

== ENCOUNTER → 2025-06-03 | Outpatient (CLI) | payer OTHER, MEDICAID, SELFPAY ==
--- NOTE | 2025-06-03 09:30 | XR_ITS ---
Examination: Abdomen sonogram, Limited Date and time of exam: June 03, 2025, 0917 hours INDICATIONS: Abnormal liver function tests on examination April 08, 2025 Technique: Real-time pop scale transabdominal sonographic images of the upper abdomen obtained. Findings: Multiple gallstones Probable calcification in the gallbladder wall Gallbladder wall thickening 0.4 cm Common bile duct 0.4 cm Pancreatic head 3.0 cm Liver 15.1 cm fatty infiltration Normal hepatopetal portal venous flow Patent IVC IMPRESSION: Cholelithiasis, suspicious for cholecystitis, consider HIDA scan or MRCP follow-up
== END | disposition home or self-care (01) ==
PROVIDERS: PCP Physician Assistant; Referring Provider Specialist; Visit Provider Specialist
DX: K80.20 Calculus of gallbladder without cholecystitis without obstruction (principal)
CPT/HCPCS: 76705

== ENCOUNTER → 2025-06-06 | Outpatient (CLI) | payer OTHER, MEDICAID, SELFPAY ==
--- NOTE | 2025-06-06 10:30 | ECHO_ITS ---
Transthoracic Echo Report Ht (in): 58 Wt (lb): 155 Exam Location: Echo Lab Status: Preadmit Plan Checker: Aura Kaye Indications: Procedure Performed: BP: / HR: MEASUREMENTS (Male / Female) Normal Values 2D ECHO LV Diastolic Diameter PLAX 3.6 cm 4.2 - 5.9 / 3.9 - 5.3 cm LV Systolic Diameter PLAX 2.4 cm IVS Diastolic Thickness 0.6 cm 0.6 - 1.0 / 0.6 - 0.9 cm LVPW Diastolic Thickness 0.6 cm 0.6 - 1.0 / 0.6 - 0.9 cm LV Relative Wall Thickness 0.3 LVOT Diameter 1.3 cm LA Systolic Diameter LX 2.7 cm 3.0 - 4.0 / 2.7 - 3.8 cm LV Ejection Fraction MOD BP 64.7 % >= 55 % LV Ejection Fraction MOD 4C 59.3 % LV Ejection Fraction 4C AL 59.5 % LV Ejection Fraction MOD 2C 69.0 % LV Ejection Fraction 2C AL 70.0 % LA Volume Index 17.7 cm?/m? 16 - 28 cm?/m? M-MODE Aortic Root Diameter MM 2.2 cm LA Systolic Diameter MM 2.6 cm LA Ao Ratio MM 1.2 AV Cusp Separation MM 1.6 cm DOPPLER AV Peak Velocity 149.0 cm/s AV Peak Gradient 8.9 mmHg AV Mean Gradient 5.0 mmHg AV Velocity Time Integral 30.0 cm LVOT Peak Velocity 108.0 cm/s LVOT Peak Gradient 4.7 mmHg LVOT Velocity Time Integral 22.7 cm AV Area Cont Eq vti 1.0 cm? AV Area Cont Eq pk 1.0 cm? MV Area PHT 3.7 cm? MR Peak Velocity 324.0 cm/s MR Peak Gradient 42.0 mmHg Mitral E Point Velocity 83.9 cm/s Mitral A Point Velocity 65.0 cm/s Mitral E to A Ratio 1.3 LV E' Lateral Velocity 14.1 cm/s Mitral E to LV E' Lateral Ratio 6.0 LV E' Septal Velocity 10.4 cm/s Mitral E to LV E' Septal Ratio 8.1 TR Peak Velocity 214.0 cm/s TR Peak Gradient 18.3 mmHg FINDINGS Left Ventricle Normal left ventricular size, wall thickness, systolic function with no obvious regional wall motion abnormalities. Normal left ventricular diastolic filling pattern for age. The ejection fraction is visually estimated at 55-60%. Right Ventricle The right ventricle is normal in size and systolic function. Left Atrium The left atrium is normal by two-dimensional, color flow and Doppler imaging with no structural abnormalities, no thrombus formation present. Right Atrium The right atrium is normal by two-dimensional imaging, color flow and Doppler imaging with no structural abnormalities, no thrombus formation present. Atrial Septum The interatrial septum appears normal with no evidence of a shunt. Aorta The aorta is normal by two-dimensional, color flow and Doppler interrogation. Mitral Valve The mitral valve is normal by two-dimensional, color flow and Doppler interrogation. Mild mitral regurgitation. Aortic Valve The aortic valve is trileaflet and normal by two-dimensional, color flow and Doppler interrogation. There is no significant aortic valve regurgitation. Tricuspid Valve The tricuspid valve is normal by two-dimensional, color flow and Doppler interrogation. There is trace tricuspid valve regurgitation. Pulmonic Valve The pulmonic valve is not well visualized. There is no significant pulmonic valve regurgitation. Vessels The pulmonary artery appears normal. The inferior vena cava pulmonary and hepatic veins appear normal. Pericardium The pericardium is normal by two-dimensional imaging. There is no significant pericardial effusion. CONCLUSIONS Indication: Malignant neoplasm of unspecified site of right female breast Normal LV size and function. Normal LV diastolic function. Estimated EF at 55- 60%. The RV is normal in size and systolic function. Trace mitral and trace tricuspid regurgitation Isi Diaz (Electronically Signed) Final Date: 06 June 2025 19:25
== END | disposition home or self-care (01) ==
LOC: SDIM 10:16
PROVIDERS: PCP Physician Assistant; Referring Provider Internal Medicine Hematology & Oncology; Visit Provider Internal Medicine Hematology & Oncology
DX: I08.1 Rheumatic disorders of both mitral and tricuspid valves (principal); C50.911 Malignant neoplasm of unspecified site of right female breast
CPT/HCPCS: 93306

== ENCOUNTER 2025-06-10 08:25 | Day surgery (SDC) | payer OTHER, MEDICAID, SELFPAY ==
[2025-06-10] VITALS (9 sets, daily range): BP systolic 101–130; BP diastolic 61–106; PULSE 65–110; RESP 13–21; TEMP 36.2–36.7; O2SAT 96–100; BMI 32.1
[2025-06-10] MEDS: SODIUM CHLORIDE 0.9% 500 ML 500 ML 20 ML IV (10:21)
[2025-06-10] MEDS: fentaNYL CIT INJ 50 mCg/ML AMP 2ML (ASD USE ONLY) IVP (10:29)
[2025-06-10] MEDS: MIDAZOLAM INJ 1 MG/ML VIAL 2 ML (ASD USE ONLY) 2 MG IVP (10:29)
[2025-06-10] MEDS: ONDANSETRON INJ 2 MG/ML INJ 2 ML 4 MG IVP (10:33)
== END 2025-06-10 11:30 | disposition home or self-care (01) ==
PROVIDERS: PCP Physician Assistant; Referring Provider Specialist; Visit Provider Specialist
PROC: 0DBE8ZX Excision of Large Intestine, Via Natural or Artificial Opening Endoscopic, Diagnostic (ICD-10-PCS; CPT 45380; principal; 2025-06-10 09:45)
DX: Z12.11 Encounter for screening for malignant neoplasm of colon (principal); Z80.0 Family history of malignant neoplasm of digestive organs; K64.1 Second degree hemorrhoids; Z85.3 Personal history of malignant neoplasm of breast; K73.9 Chronic hepatitis, unspecified; G89.4 Chronic pain syndrome; F41.1 Generalized anxiety disorder
CPT/HCPCS: 45378; 81025; A4217; A4649; J1200; J2250; J2405; J3010; J7999

== ENCOUNTER → 2025-07-11 | Outpatient (CLI) | payer OTHER, MEDICAID, SELFPAY ==
--- NOTE | 2025-07-11 08:15 | XR_ITS ---
EXAMINATION: MRI thoracic spine with intravenous contrast TECHNIQUE: Multiple axial sagittal MRI images thoracic spine post intravenous administration of 14 cc gadolinium INDICATIONS: Diagnosis malignant neoplasm of unspecified site right female breast, back pain several years getting worse, numbness and paresthesias left arm Date and time: July 11, 2025, 0825 hours FINDINGS: Satisfactory alignment thoracic vertebral bodies No thoracic fracture No localized enlargement thoracic cord No abnormal osseous epidural or thoracic cord enhancement IMPRESSION: Negative for osseous metastatic disease No abnormal epidural enhancement impinging upon the thoracic cord
--- NOTE | 2025-07-11 08:30 | XR_ITS ---
EXAMINATION: MRI lumbar spine post contrast TECHNIQUE: Multiple axial sagittal MR lumbar spine images post intravenous administration of 14 cc gadolinium INDICATIONS: Diagnosis malignant neoplasm of unspecified site of right female breast, low back pain several years worse last year more severe in the lower back numbness and paresthesias left arm Date and time: July 11, 2025, 0825 hours, comparison MRI lumbar spine without contrast February 01, 2015 FINDINGS: Satisfactory alignment lumbar vertebral bodies No lumbar fracture No lumbar disc narrowing. No spondylolisthesis No abnormal osseous epidural conus medullaris or cauda equina enhancement No epidural tumor impinging upon the conus medullaris or cauda equina IMPRESSION: Negative for osseous metastatic disease
--- NOTE | 2025-07-11 08:30 | XR_ITS ---
EXAMINATION: MRI cervical spine with intravenous contrast TECHNIQUE: Multiple MR sagittal axial images of cervical spine post intravenous administration of 14 cc gadolinium INDICATIONS: Diagnosis malignant neoplasm of unspecified site of right female breast, neck pain several years worse the last year with numbness and tingling in the left arm FINDINGS: Satisfactory alignment cervical vertebral bodies No cervical fracture No significant cervical disc narrowing No abnormal osseous epidural or cervical cord enhancement No impingement upon the cervical cord IMPRESSION: No abnormal osseous epidural or cervical cord enhancement As clinically warranted, MRI cervical spine without contrast follow-up would best assess for focal disc protrusion producing radicular left arm symptoms
== END | disposition home or self-care (01) ==
PROVIDERS: PCP Physician Assistant; Referring Provider Internal Medicine Hematology & Oncology; Visit Provider Internal Medicine Hematology & Oncology
DX: M54.50 Low back pain, unspecified (principal); M54.2 Cervicalgia; M54.6 Pain in thoracic spine; C50.911 Malignant neoplasm of unspecified site of right female breast
CPT/HCPCS: 72142; 72147; 72149; A9577